=== PATIENT | male | born 1960 | race Caucasian/White ===

== ENCOUNTER 2018-05-20 15:43 | Emergency (ER) | payer OTHER, BC ==
[~2018-05-20] VITALS: Ht 185.4 cm; Wt 145.1 kg
[2018-05-20] MEDS ORDERED: IV NORMAL SALINE 1000ML BAG 1,000 ML IV SCH (16:01)
--- NOTE | 2018-05-20 16:07 | PHYS DOC ---
Past Medical History Past Medical History: High Cholesterol, Hypertension Past Surgical History: Cholecystectomy, Gastric Bypass Additional Past Surgical Histo: R WRIST SX,SPINAL SX W/ HARDWARE Additional Information: Nonsmoker Alcohol Use: Occasionally Drug Use: None Adult General Chief Complaint Chief Complaint: FLANK PAIN HPI HPI Patient is a 57 year old left flank and left testicular pain. This started approximately 4-5 days ago. Improved for a couple of days with acetaminophen and in fact had no pain yesterday. Today it is much worse than it has been previously. Patient denies any dysuria or hematuria. Reports subjective fever but has not taken home temperature. Denies any recent trauma however reports remote trauma to his testicles, "got headed" in the testicles approximately 20 years ago. Worse pain with movement and walking. He denies any penile discharge. Patient is uncertain if the pain radiates from the flank to the testicle or from the testicle to the flank.[] Review of Systems Review of Systems Constitutional: Denies fever or chills [] Eyes: Denies change in visual acuity, redness, or eye pain [] HENT: Denies nasal congestion or sore throat [] Respiratory: Denies cough or shortness of breath [] Cardiovascular: No chest pain or palpitations[] GI: Denies abdominal pain, nausea, vomiting, bloody stools or diarrhea [] : Denies dysuria or hematuria [] Musculoskeletal: Denies back pain or joint pain [] Integument: Denies rash or skin lesions [] Neurologic: Denies headache, focal weakness or sensory changes [] Endocrine: Denies polyuria or polydipsia [] All other systems were reviewed and found to be within normal limits, except as documented in this note. Current Medications Current Medications Current Medications Medications (Trade) Dose Ordered Sig/Jose J Start Time Stop Time Status Last Admin Dose Admin Ketorolac Tromethamine (Toradol 30mg Vial) 30 mg 1X ONCE 05/20/18 16:15 05/20/18 16:16 DC 05/20/18 16:10 30 MG Prochlorperazine Edisylate (Compazine) 5 mg 1X ONCE 05/20/18 16:15 05/20/18 16:16 DC 05/20/18 16:10 5 MG Sodium Chloride 1,000 ml @ 1,000 mls/hr Q1H 05/20/18 16:01 05/20/18 17:00 DC 05/20/18 16:10 1,000 MLS/HR Allergies Allergies Allergies Coded Allergies Type Severity Reaction Last Updated Verified No Known Drug Allergies 05/20/18 No Physical Exam Physical Exam Constitutional: Well developed, well nourished, mild discomfort, non-toxic appearance. [] HENT: Normocephalic, atraumatic, bilateral external ears normal, oropharynx moist, no oral exudates, nose normal. [] Eyes: PERRLA, EOMI, conjunctiva normal, no discharge. [] Neck: Normal range of motion, no tenderness, supple, no stridor. [] Cardiovascular:Heart rate regular rhythm, no murmur [] Lungs & Thorax: Bilateral breath sounds clear to auscultation [] Abdomen: Bowel sounds normal, soft, no tenderness, no masses, no pulsatile masses. : Normal male with bilateral descended testes, tenderness to palpation along the posterior aspect of the left testicle. There are no rashes noted.[] Skin: Warm, dry, no erythema, no rash. [] Back: No tenderness, mild left CVA tenderness. [] Extremities: No tenderness, no cyanosis, no clubbing, ROM intact, no edema. [] Neurologic: Alert and oriented X 3, normal motor function, normal sensory function, no focal deficits noted. [] Psychologic: Affect normal, judgement normal, mood normal. [] Current Patient Data Vital Signs Vital Signs Date Time Temp Pulse Resp B/P (MAP) Pulse Ox O2 Delivery O2 Flow Rate FiO2 05/20/18 15:51 97.4 74 18 165/86 (112) 97 Room Air 97.4 Lab Values Laboratory Tests Test 05/20/18 15:55 05/20/18 16:08 White Blood Count 10.2 x10^3/uL (4.0-11.0) Red Blood Count 5.15 x10^6/uL (4.30-5.70) Hemoglobin 12.5 g/dL (13.0-17.5) L Hematocrit 39.1 % (39.0-53.0) Mean Corpuscular Volume 76 fL (79-100) L Mean Corpuscular Hemoglobin 24 pg (25-35) L Mean Corpuscular Hemoglobin Concent 32 g/dL (31-37) Red Cell Distribution Width 18.4 % (11.5-14.5) H Platelet Count 249 x10^3/uL (140-400) Neutrophils (%) (Auto) 70 % (31-73) Lymphocytes (%) (Auto) 17 % (24-48) L Monocytes (%) (Auto) 11 % (0-9) H Eosinophils (%) (Auto) 2 % (0-3) Basophils (%) (Auto) 1 % (0-3) Neutrophils # (Auto) 7.1 x10^3uL (1.8-7.7) Lymphocytes # (Auto) 1.8 x10^3/uL (1.0-4.8) Monocytes # (Auto) 1.1 x10^3/uL (0.0-1.1) Eosinophils # (Auto) 0.2 x10^3/uL (0.0-0.7) Basophils # (Auto) 0.1 x10^3/uL (0.0-0.2) Prothrombin Time 13.1 SEC (11.7-14.0) Prothrombin Time INR 1.0 (0.8-1.1) Sodium Level 139 mmol/L (136-145) Potassium Level 3.9 mmol/L (3.5-5.1) Chloride Level 102 mmol/L (98-107) Carbon Dioxide Level 27 mmol/L (21-32) Anion Gap 10 (6-14) Blood Urea Nitrogen 15 mg/dL (8-26) Creatinine 1.1 mg/dL (0.7-1.3) Estimated GFR (Cockcroft-Gault) 69.5 BUN/Creatinine Ratio 14 (6-20) Glucose Level 152 mg/dL (70-99) H Calcium Level 8.8 mg/dL (8.5-10.1) Total Bilirubin 0.4 mg/dL (0.2-1.0) Aspartate Amino Transferase (AST) 14 U/L (15-37) L Alanine Aminotransferase (ALT) 37 U/L (16-63) Alkaline Phosphatase 98 U/L (46-116) Total Protein 7.5 g/dL (6.4-8.2) Albumin 3.6 g/dL (3.4-5.0) Albumin/Globulin Ratio 0.9 (1.0-1.7) L Lipase 86 U/L (73-393) Urine Collection Type Unknown Urine Color Yellow Urine Clarity Clear Urine pH 6.0 Urine Specific [place] 1.020 Urine Protein Negative mg/dL (NEG-TRACE) Urine Glucose (UA) Negative mg/dL (NEG) Urine Ketones (Stick) Negative mg/dL (NEG) Urine Blood Negative (NEG) Urine Nitrite Negative (NEG) Urine Bilirubin Negative (NEG) Urine Urobilinogen Dipstick 0.2 mg/dL (0.2 mg/dL) Urine Leukocyte Esterase Negative (NEG) Urine RBC 1-2 /HPF (0-2) Urine WBC 1-4 /HPF (0-4) Urine Bacteria 0 /HPF (0-FEW) Urine Mucus Slight /LPF Laboratory Tests 05/20/18 15:55 Laboratory Tests 05/20/18 15:55 EKG EKG [] Radiology/Procedures Radiology/Procedures CT abdomen and pelvis without contrast 05/20/2018. Reason for exam: Left flank pain. Helical noncontrast images were performed through the abdomen and pelvis. Exposure: One or more of the following individualized dose reduction techniques were utilized for this examination: 1. Automated exposure control 2. Adjustment of the mA and/or kV according to patient size 3. Use of iterative reconstruction technique. FINDINGS: The lung bases are clear. The liver and spleen are homogeneous in density and normal in configuration. Evaluation of the solid organs is somewhat limited by lack of IV contrast. The kidneys show no apparent mass or calcification. There is some perinephric edema on the left. There is mild left-sided hydronephrosis due to a stone at the ureteropelvic junction. This calcification measures about 9 mm across and 10 mm craniocaudally. No adrenal or pancreatic abnormality is seen. There is no apparent adenopathy. There is mild haziness in the mesenteric fat, but no significant inflammatory process is seen. Images through the pelvis show no apparent abnormality of the distal ureters or bladder. The bladder was not well-distended. No pelvic or inguinal adenopathy is seen. There is a fat-containing left inguinal hernia. There is no separate pelvic mass or inflammatory process. IMPRESSION: There is a 10 x 9 mm proximal left ureteral stone causing at least moderate obstruction. Scrotal ultrasound 05/20/2018 CLINICAL HISTORY: Left scrotal pain. TECHNIQUE: Using a combination real-time ultrasound imaging and color-flow and pulse Doppler imaging techniques, duplex evaluation of scrotal sac and its contents was performed. Multiple images were obtained. FINDINGS: Both testicles are within normal limits in size and echogenicity. The right testicle measures 3.9 x 3.0 x 3.1 cm in longitudinal, transverse, and AP dimensions. The left testicle measures 4.0 x 3.0 x 2.8 cm in size. Normal color flow and pulse Doppler imaging to both testicles is seen. Both epididymal heads are within normal limits in size and echogenicity. There are small bilateral hydroceles. A moderate left hydrocele is seen which measures approximately 5 cm in greatest diameter. IMPRESSION: 1. Small bilateral hydroceles. 2. Moderate left varicocele.[] Course & Med Decision Making Course & Med Decision Making Pertinent Labs and Imaging studies reviewed. (See chart for details) ED course: Patient arrived, was placed in bed, in tolerated exam well. He achieved significant pain relief with the IV NSAIDs as well as the antiemetics. He was transported to and from [place] with any complications and had the ultrasound performed as well without any complications. Offered the patient the option of admission for the large kidney stone noted and he deferred given that his pain was well controlled. Discussed findings and plan with patient who voiced understanding. All questions were answered. Discussed patient care with Dr. Vu who will follow-up with the patient during this next week. Medical decision making: Patient has a large kidney stone on the left side consistent with his symptomatology. No evidence of Sarah's gangrene, no torsion, and no evidence of an infected stone at this time. No evidence of other intra-abdominal pathology.[] Dragon Disclaimer Dragon Disclaimer This electronic medical record was generated, in whole or in part, using a voice recognition dictation system. Departure Departure Impression: Primary Impression: Kidney stone on left side Disposition: HOME, SELF-CARE Condition: IMPROVED Referrals: GERMAN REDMOND MD (PCP) JOSE VU MD Call Tuesday to set follow-up appointment Patient Instructions: Diet for Kidney Stones, Kidney Stones Additional Instructions: Follow-up with urology. Call Tuesday to set up follow-up appointment. Return to the ER if pain is not controlled, unable to tolerate liquids, or any other concerns. Scripts Ciprofloxacin Hcl (CIPRO) 500 Mg Tablet 1 TAB PO BID, #14 TAB Prov: LACEY HEREDIA DO 3/2/19 Ondansetron Hcl (ZOFRAN) 4 Mg Tablet 4 MG PO PRN TID PRN for NAUSEA/VOMITING, #20 nausea/vomiting Prov: LACEY HEREDIA DO 05/20/18 Oxycodone/Apap 5-325 (PERCOCET 5-325 MG TABLET ) 1 Each Tablet 1-2 EACH PO PRN TID PRN for SEVERE PAIN, #25 TAB pain Prov: LACEY HEREDIA DO 05/20/18 Meloxicam (MELOXICAM) 7.5 Mg Tablet 7.5 MG PO DAILY, #20 TAB 1 or 2 tablets daily Prov: LACEY HEREDIA DO 05/20/18 LACEY HEREDIA DO May 20, 2018 16:07
[2018-05-20 16:14] LABS: BASO # 0.1 x10^3/uL (0.0-0.2); BASO % 1 % (0-3); EOS # 0.2 x10^3/uL (0.0-0.7); EOS % 2 % (0-3); HEMATOCRIT 39.1 % (39.0-53.0); HEMOGLOBIN 12.5 g/dL (13.0-17.5); LYMPH # 1.8 x10^3/uL (1.0-4.8); LYMPH % 17 % (24-48); MEAN CORPUSCULAR HEMOGLOBIN 24 pg (25-35); MEAN CORPUSCULAR HGB CONC 32 g/dL (31-37); MEAN CORPUSCULAR VOLUME 76 fL (79-100); MONO # 1.1 x10^3/uL (0.0-1.1); MONO % 11 % (0-9); NEUT # 7.1 x10^3uL (1.8-7.7); NEUT % 70 % (31-73); PLATELET COUNT 249 x10^3/uL (140-400); RED BLOOD COUNT 5.15 x10^6/uL (4.30-5.70); RED CELL DISTRIBUTION WIDTH 18.4 % (11.5-14.5); WHITE BLOOD COUNT 10.2 x10^3/uL (4.0-11.0)
[2018-05-20] MEDS ORDERED: PROCHLORPERAZINE 10 MG/2 ML VIAL. IV ONE (16:15)
[2018-05-20] MEDS ORDERED: KETOROLAC 30 MG/ML VIAL. IV ONE (16:15)
[2018-05-20 16:20] LABS: CALCIUM 8.8 mg/dL (8.5-10.1); CREATININE 1.1 mg/dL (0.7-1.3); GFR 69.5; POTASSIUM 3.9 mmol/L (3.5-5.1)
[2018-05-20 16:21] LABS: PROTHROMBIN TIME PATIENT 13.1 SEC (11.7-14.0)
[2018-05-20 16:24] LABS: BILIRUBIN,URINE NEGATIVE (NEG); CLARITY,URINE CLEAR; COLOR,URINE YELLOW; NITRITE,URINE NEGATIVE (NEG); PROTEIN,URINE NEGATIVE (NEG-TRACE); UROBILINOGEN,URINE 0.2 mg/dL (0.2 mg/dL)
[2018-05-20 16:26] LABS: ALBUMIN 3.6 g/dL (3.4-5.0); ALBUMIN/GLOBULIN RATIO 0.9 (1.0-1.7); TOTAL BILIRUBIN 0.4 mg/dL (0.2-1.0); TOTAL PROTEIN 7.5 g/dL (6.4-8.2)
[2018-05-20 16:30] LABS: BACTERIA,URINE 0 /HPF (0-FEW)
--- NOTE | 2018-05-20 16:55 | RAD ---
CT abdomen and pelvis without contrast 05/20/2018. Reason for exam: Left flank pain. Helical noncontrast images were performed through the abdomen and pelvis. Exposure: One or more of the following individualized dose reduction techniques were utilized for this examination: 1. Automated exposure control 2. Adjustment of the mA and/or kV according to patient size 3. Use of iterative reconstruction technique. FINDINGS: The lung bases are clear. The liver and spleen are homogeneous in density and normal in configuration. Evaluation of the solid organs is somewhat limited by lack of IV contrast. The kidneys show no apparent mass or calcification. There is some perinephric edema on the left. There is mild left-sided hydronephrosis due to a stone at the ureteropelvic junction. This calcification measures about 9 mm across and 10 mm craniocaudally. No adrenal or pancreatic abnormality is seen. There is no apparent adenopathy. There is mild haziness in the mesenteric fat, but no significant inflammatory process is seen. Images through the pelvis show no apparent abnormality of the distal ureters or bladder. The bladder was not well-distended. No pelvic or inguinal adenopathy is seen. There is a fat-containing left inguinal hernia. There is no separate pelvic mass or inflammatory process. IMPRESSION: There is a 10 x 9 mm proximal left ureteral stone causing at least moderate obstruction. Electronically signed by: Sy Valdez Jr., MD (05/20/2018 4:52 PM) [facility] [place]
--- NOTE | 2018-05-20 17:34 | RAD ---
Scrotal ultrasound 05/20/2018 CLINICAL HISTORY: Left scrotal pain. TECHNIQUE: Using a combination real-time ultrasound imaging and color-flow and pulse Doppler imaging techniques, duplex evaluation of scrotal sac and its contents was performed. Multiple images were obtained. FINDINGS: Both testicles are within normal limits in size and echogenicity. The right testicle measures 3.9 x 3.0 x 3.1 cm in longitudinal, transverse, and AP dimensions. The left testicle measures 4.0 x 3.0 x 2.8 cm in size. Normal color flow and pulse Doppler imaging to both testicles is seen. Both epididymal heads are within normal limits in size and echogenicity. There are small bilateral hydroceles. A moderate left hydrocele is seen which measures approximately 5 cm in greatest diameter. IMPRESSION: 1. Small bilateral hydroceles. 2. Moderate left varicocele. Electronically signed by: Javier Zhang MD (05/20/2018 5:31 PM) [facility]
[2018-05-20] MEDS ORDERED: MELO7.5T29 PO (17:54)
[2018-05-20] MEDS ORDERED: CIPR500T94 PO (17:54)
[2018-05-20] MEDS ORDERED: OXYC1TAB15 PO (17:54)
[2018-05-20] MEDS ORDERED: ONDA4TAB7 PO (17:54)
[2018-05-20 18:30] VITALS: BP 137/74
--- NOTE | 2018-05-20 19:17 | RAD ---
ABDOMINAL RADIOGRAPH (AP) History: L side kidney stone Comparison: CT abdomen pelvis same day. Findings: An oval radiopaque density measuring approximately 1.1 x 0.5 cm is seen in the expected region of the proximal left ureteral stone seen on CT same day. No obvious free air. No dilated air-filled loops of bowel are seen. Bowel gas pattern is nonobstructive. Right upper quadrant surgical clips. Pelvic phleboliths. No acute osseous abnormality. Lumbosacral fusion hardware. IMPRESSION: An oval radiopaque density measuring approximately 1.1 x 0.5 cm is seen in the expected region of the proximal left ureteral stone seen on CT same day. Electronically signed by: Pierce Thacker MD (05/20/2018 7:14 PM) [id number]
[2018-05-25] MEDS ORDERED: OXYB15TA PO (10:27)
== END 2018-05-20 18:33 | disposition home or self-care (01) ==
LOC: ER 15:43
DX: N20.0 Calculus of kidney (principal); N43.3 Hydrocele, unspecified; I86.1 Scrotal varices; I10 Essential (primary) hypertension; E78.00 Pure hypercholesterolemia, unspecified; Z90.49 Acquired absence of other specified parts of digestive tract; Z98.84 Bariatric surgery status
CPT/HCPCS: 36415; 74018; 74176; 76870; 80053; 81001; 83690; 85025; 85610; 96374; 96375; 99284; J0780; J1885; J7030

== ENCOUNTER 2018-05-25 07:46 | Day surgery (SDC) | payer OTHER, BC ==
[~2018-05-25 07:46] MED LIST: CIPR500T94 PO; HYDROmorphone 2 MG/ML VIAL IV PRN; IV RINGERS,LACTATED 1000ML 1,000 ML IV SCH; LIDOCAINE 1% PF 2 ML VIAL. ID PRN; MELO7.5T29 PO; MORPHINE SULFATE 2 MG/ML VIAL. IV PRN; ONDA4TAB7 PO; ONDANSETRON PF 4 MG/2 ML VIAL. IV PRN; OXYC1TAB15 PO; PROCHLORPERAZINE 10 MG/2 ML VIAL. IV PRN; fentaNYL PF VIAL 100 MCG/2 ML VIAL IV PRN
[2018-05-25] MEDS ORDERED: fentaNYL PF VIAL 100 MCG/2 ML VIAL ONE (09:18)
[2018-05-25] MEDS ORDERED: PROPOFOL 20 ML IV ONE (09:18)
[2018-05-25] MEDS ORDERED: LIDOCAINE 2% PF 5 ML VIAL. ONE (09:18)
[2018-05-25] MEDS ORDERED: IOHEXOL 300 MG/ML 100ML VIAL. ONE (09:43)
[2018-05-25] MEDS ORDERED: LIDOCAINE 2% JELLY 6ML IN APPLICATOR. ONE (09:44)
[2018-05-25] MEDS ORDERED: ONDANSETRON PF 4 MG/2 ML VIAL. ONE (10:10)
[2018-05-25] MEDS ORDERED: DEXAMETHASONE SOD PHOS 20 MG/5 ML VIAL. ONE (10:10)
[2018-05-25] MEDS ORDERED: SEVOFLURANE 31 TO 60 MINUTES. IH ONE (10:10)
--- NOTE | 2018-05-25 10:25 | PDOC4 ---
OPERATIVE NOTE Date: Date: May 25, 2018 Pre-Op Diagnosis: left ureteral stone Post-Op Diagnosis: same Procedure Performed: cystoscopy, left ureteral stent placement, left retrograde pyelogram Surgeon: Jose Vu Anesthesia Type: general Blood Loss: 0 Specimans Obtained: none Findings: left proximal ureter stone Complications: none Operative Note: see dictation JOSE VU MD May 25, 2018 10:25
[2018-05-25] MEDS ORDERED: OXYB15TA PO (10:27)
--- NOTE | 2018-05-25 10:44 | OP ---
DATE OF SURGERY: 05/25/2018 SURGEON: Jose Vu M.D. [facility] ATTENDANT: None. PREOPERATIVE DIAGNOSIS: Left ureter stone. POSTOPERATIVE DIAGNOSIS: Left ureter stone. PROCEDURES PERFORMED: Left ureteral stent placement, cystoscopy and retrograde pyelogram. ANESTHESIA TYPE: General. INDICATIONS: This is a 57-year-old male with an 11-mm proximal left ureter stone. After discussion of risks, benefits and alternatives, he elected to undergo the above procedure. Informed consent was obtained. DESCRIPTION OF PROCEDURE: The patient was taken to the operating room, where general anesthesia was induced. He was placed in the dorsal lithotomy position and sterilely prepped and draped. Timeout performed. A rigid cystoscope was advanced through the urethra and into the bladder. The urethra and bladder appeared normal. A ureteral catheter was advanced into the left ureter and a left retrograde pyelogram was performed, which showed a stone in the proximal left ureter and moderate left hydronephrosis. A Guidewire was advanced through the ureter and up into the renal pelvis. A 6 x 28 cm stent was advanced over the wire and appropriate curl was seen on fluoroscopy within the kidney and visually within the bladder. The bladder contents were emptied. The patient was awakened and taken to the recovery room in stable condition. ESTIMATED BLOOD LOSS: None. COMPLICATIONS: None. SPECIMEN: None. JOSE VU MD DR: DOYLE/talon JOB#: [id number] / [id number]
[2018-05-25] MEDS ORDERED: oxyCODONE/APAP 5/325 1 TAB TABLET PO ONE (11:30)
[2018-05-25 11:45] VITALS: BP 138/66
== END 2018-05-25 12:24 | disposition home or self-care (01) ==
LOC: SURG 07:46
PROVIDERS: ATTEND Urology
DX: N13.2 Hydronephrosis with renal and ureteral calculous obstruction (principal); I10 Essential (primary) hypertension; E78.00 Pure hypercholesterolemia, unspecified; Z82.3 Family history of stroke; Z72.89 Other problems related to lifestyle; Z91.048 Other nonmedicinal substance allergy status; Z98.84 Bariatric surgery status; Z98.890 Other specified postprocedural states; Z79.899 Other long term (current) drug therapy
CPT/HCPCS: 52332; 76000; A7015; C1769; C2617; J0696; J1100; J2001; J2405; J2704; J3010; Q9967

== ENCOUNTER → 2018-06-14 | Outpatient (CLI) | payer OTHER, BC ==
[2018-05-25 11:45] VITALS: BP 138/66
[~2018-06-14] MED LIST changes: -HYDROmorphone 2 MG/ML VIAL IV PRN; -IV RINGERS,LACTATED 1000ML 1,000 ML IV SCH; -LIDOCAINE 1% PF 2 ML VIAL. ID PRN; -MORPHINE SULFATE 2 MG/ML VIAL. IV PRN; -ONDANSETRON PF 4 MG/2 ML VIAL. IV PRN; +OXYB15TA PO; -PROCHLORPERAZINE 10 MG/2 ML VIAL. IV PRN; -fentaNYL PF VIAL 100 MCG/2 ML VIAL IV PRN
--- NOTE | 2018-06-14 09:09 | RAD ---
KUKristen, 06/14/2018: HISTORY: Left-sided kidney stone Comparison is made to a study from 05/20/2018. A left ureteral stent has been placed and it appears to be in satisfactory position. The kidneys are largely obscured by overlying bowel content. There is a cluster of radiopacities projected over the lower pole of the left kidney which were not evident on the 05/20/2018 CT study. At that time there was a calculus lodged at the left ureteral pelvic junction level. The findings suggest that that calculus has been displaced back into the renal pelvis during stent placement with interval fragmentation of that calculus. No definite radiopaque calculus is seen along the course of the left ureteral stent. Several bilateral pelvic calcifications are probably vascular. Surgical clips are present right upper quadrant. The abdominal gas pattern is unremarkable. Postsurgical changes with instrumentation are noted in the lower lumbar spine. IMPRESSION: 1. The left ureteral stent is in satisfactory position. 2. Multiple small stone fragments projected over the lower pole of the left kidney. Electronically signed by: Emeka Kiser MD (06/14/2018 9:05 AM) [facility]
== END | disposition home or self-care (01) ==
LOC: RAD 07:29
PROVIDERS: ATTEND Urology
DX: N20.0 Calculus of kidney (principal); Z96.0 Presence of urogenital implants
CPT/HCPCS: 74018

== ENCOUNTER → 2018-07-03 | Outpatient (CLI) | payer OTHER, BC ==
--- NOTE | 2018-07-03 08:26 | RAD ---
Examination: KUB History: left sided kidney stone Comparison/Correlation: 08/14/2018 two-view x-ray exam Findings: Frontal view of the abdomen was obtained. Left ureteral stent is present. At the left lower renal pole, calculus involvement is again seen without significant change. A dominant calculus or conglomeration of calculi measuring up to 0.95 cm is evident. Lumbosacral spinal fusion is noted with surgical clips at the L5-S1 level. No suspicious right collecting system calculi. Pelvic calcifications compatible with phleboliths noted. Impression: Most of the change in left lower renal pole calculi. No suspicious findings in the interval. Electronically signed by: Braxton Toscano MD (07/03/2018 8:23 AM) [id number]
== END | disposition home or self-care (01) ==
LOC: RAD 06:16
PROVIDERS: ATTEND Urology
DX: N20.0 Calculus of kidney (principal); M43.27 Fusion of spine, lumbosacral region; Z96.0 Presence of urogenital implants
CPT/HCPCS: 74018

== ENCOUNTER → 2018-08-21 | Outpatient (CLI) | payer OTHER, BC ==
--- NOTE | 2018-08-21 13:12 | RAD ---
EXAM: Abdomen one view. HISTORY: Left ureteral calculus status post lithotripsy. COMPARISON: 07/03/2018. FINDINGS: A frontal view of the abdomen is obtained. A left ureteral stent has been removed. Calculi previously noted in the left renal lower pole are no longer identified. Multiple calcifications in the left hemipelvis are unchanged and are consistent with phleboliths or atherosclerotic calcifications. No clear renal or ureteral calculi are detectable currently. There are no distended small bowel loops. There is gas distally. Cholecystectomy clips are noted. Instrumented anterior and posterior fusion changes are noted at L5-S1. IMPRESSION: 1. No detectable renal or ureteral calculi by radiographs. Electronically signed by: Yue Elizondo MD (08/21/2018 1:09 PM) [facility]
== END | disposition home or self-care (01) ==
LOC: RAD 06:22
PROVIDERS: ATTEND Urology
DX: N20.1 Calculus of ureter (principal)
CPT/HCPCS: 74018

== ENCOUNTER → 2018-08-28 | Outpatient (CLI) | payer OTHER, BC ==
--- NOTE | 2018-08-28 17:22 | RAD ---
Renal ultrasound HISTORY: Ureteral calculus FINDINGS: Right kidney measures 12.1 cm longitudinal without hydronephrosis or shadowing calculus. Left kidney measures 13.4 seen longitudinal without hydronephrosis or shadowing calculus. No obvious abnormality of the urinary bladder. IMPRESSION: Unremarkable renal ultrasound. Electronically signed by: Bobby Borges MD (08/28/2018 5:19 PM) [id number]
== END | disposition home or self-care (01) ==
LOC: US 15:03
PROVIDERS: ATTEND Urology
DX: N20.1 Calculus of ureter (principal)
CPT/HCPCS: 76770